=== PATIENT | male | born 1980 | race Caucasian/White ===

== ENCOUNTER 2017-01-25 17:43 | Emergency (ER) | payer SELFPAY ==
[2017-01-25 18:08] VITALS: BP 133/83
--- NOTE | 2017-01-25 18:16 | UC ---
Skin Complaint HPI - HPI Summary HPI Summary: 36 y/o male presents to the urgent care c/o red rash below his belly bottom since 01/21/2017. Pt reports he moved 100 kay of hay on that date and at night time he was scratching and he noticed his abdomen with redness, which has now increase in size. Pain is 7/10 when he touches, feeling a "prickly" sensation w/ o any radiation. He felt a little nausea this morning. . Pt denies fever, SOB, chest pain, V/D. - History of Current Complaint Chief Complaint: UCSkin Time Seen by Provider: 01/25/17 18:14 Stated Complaint: ABD PAIN/SKIN COMPLAINT Hx Obtained From: Patient Onset/Duration: Gradual Onset, Lasting Days, Still Present Skin Exposure Onset/Duration: Days Ago Timing: Constant Onset Severity: Mild Current Severity: Moderate Pain Intensity: 7 Pain Scale Used: 0-10 Numeric Location: Discrete - mid abdomen Character: Pain, Redness Aggravating: Touch Alleviating: Nothing Associated Signs & Symptoms: Positive: Tenderness. Negative: Nausea, Vomiting, Numbness, Shivering, Difficulty Breathing, Fever, Chills, Throat Tightening, Red Streaks Related History: Possible Reaction to: Insect - Allergy/Home Medications Allergies/Adverse Reactions: Allergies Allergy/AdvReac Type Severity Reaction Status Date / Time [facility] Unknown Verified 01/25/17 18:08 Reaction Details Penicillins Allergy Unknown Verified 01/25/17 18:08 Reaction Details Review of Systems Constitutional: Negative Skin: Rash - mid abdomen with pain and redness Eyes: Negative ENT: Negative Respiratory: Negative Cardiovascular: Negative Gastrointestinal: Negative, Nausea - this morning which resolved Genitourinary: Negative Motor: Negative Neurovascular: Negative Musculoskeletal: Negative Neurological: Negative Psychological: Negative All Other Systems Reviewed And Are Negative: Yes PMH/Surg Hx/FS Hx/Imm Hx Previously Healthy: Yes - Surgical History Surgical History: None - Family History Known Family History: Positive: Diabetes Family History: lung cancer, emphysema - Social History Occupation: Employed Full-time Lives: With Family Alcohol Use: None Substance Use Type: Marijuana Substance Use Comment - Amount & Last Used: twice daily Smoking Status (MU): Heavy Every Day Tobacco Smoker Type: Cigarettes Amount Used/How Often: 3/4 ppd Physical Exam Triage Information Reviewed: Yes Appearance: Well-Appearing, No Pain Distress, Well-Nourished, Obese Vital Signs: Initial Vital Signs Temp 98.6 F 01/25/17 18:02 Pulse 93 01/25/17 18:02 Resp 16 01/25/17 18:02 BP 133/83 01/25/17 18:02 Pulse Ox 97 01/25/17 18:02 Vital Signs Reviewed: Yes Eye Exam: Normal Eyes: Positive: Conjunctiva Clear - PERRLA, EOMI, ENT Exam: Normal ENT: Positive: Normal ENT inspection, Hearing grossly normal, Pharynx normal, TMs normal Dental Exam: Normal Neck exam: Normal Neck: Positive: Supple, Nontender, No Lymphadenopathy Respiratory Exam: Normal Respiratory: Positive: Chest non-tender, Lungs clear, Normal breath sounds Cardiovascular Exam: Normal Cardiovascular: Positive: RRR, No Murmur, Pulses Normal Abdominal Exam: Normal Abdomen Description: Positive: Nontender, No Organomegaly, Soft. Negative: CVA Tenderness (R), CVA Tenderness (L) Bowel Sounds: Positive: Present Musculoskeletal Exam: Normal Musculoskeletal: Positive: Strength Intact, ROM Intact, No Edema Neurological Exam: Normal Neurological: Positive: Muscle Tone Normal Psychological Exam: Normal Skin: Positive: rashes - mid abdomen below the umbilicus with erythematous patch with indistinct border, war to touch, tender to palpation about 4cm X2cm in size Course/Dx - Course Course Of Treatment: 36 y/o male presents to the urgent care c/o red rash below his belly bottom since 01/21/2017. Pt reports he moved 100 kay of hay on that date and at night time he was scratching and he noticed his abdomen with redness, which has now increase in size. Pain is 7/10 when he touches, feeling a "prickly" sensation w/o any radiation. He felt a little nausea this morning. . Pt denies fever, SOB, chest pain, V/D.Hx obtained. Pt with Cellulitis most likely s/p insect bite. Pt Rx Bactrim PO, bacitracin topical cream and Ibuprofen PO to alleviate pain. Pt dvised to return to the clinic or go to the ER if the redness doubles in size after more of 48hrs despite taking ABX. Pt understood and agreed. - Differential Diagnoses - Skin Complaint Differential Diagnoses: Abscess, Cellulitis, Eczema, Local Allergic Reaction, Tick Born Illness, Urticaria, Varicella Zoster - Diagnoses Provider Diagnoses: 1- celullitis Discharge - Discharge Plan Condition: Stable Disposition: HOME Prescriptions: Bacitracin OINTMENT* 1 applic TOPICAL BID #1 tube Ibuprofen TAB* [Motrin TAB* 800 MG] 800 mg PO Q6H #20 tab Sulfamethox/Trimethoprim DS* [Bactrim DS 800/160 TAB*] 1 tab PO BID #20 tab Patient Education Materials: Cellulitis (ED) Referrals: No Primary Care Phys,NOPCP [Primary Care Provider] - [facility] [Outside] Additional Instructions: 1-Please take full course of Antibiotic to avoid resistance 2- If redness and swelling doubles in size beyond what was demarcated after 48 hrs of taking antibiotic and fever develops please go to the ER immediately. 3-Please F/u with your PCP in 2 days for further management.
== END 2017-01-25 18:44 | disposition home or self-care (01) ==
LOC: UCCORT 17:43
DX: L03.90 Cellulitis, unspecified (principal); Z88.0 Allergy status to penicillin; F12.90 Cannabis use, unspecified, uncomplicated; F17.210 Nicotine dependence, cigarettes, uncomplicated; E66.9 Obesity, unspecified
CPT/HCPCS: 99202; G0463

== ENCOUNTER 2017-02-02 07:39 | Emergency (ER) | payer SELFPAY ==
[2017-02-02 07:59] VITALS: BP 131/82
--- NOTE | 2017-02-02 08:18 | ED ---
Skin Complaint - HPI Summary HPI Summary: 36 yr old male with cellulitis to the anterior abdominal wall. He states he had onset of this over a week ago. he came here and was put on bactrim. His cellulitis is much larger, and he feels light headed and dizzy. He has had chest pain, right calf pain, and some SOB the past week as well. He says he just doesnt' feel right. He states he knows he should have come back sooner to be seen, but didn't want to come back before giving the antibiotic time to work. The patient states originally the redness was small and only a little larger than an inch, but now it is across most of his anterior abdomen. His last tetanus shot was within the past two years. - History of Current Complaint Chief Complaint: UCSkin Time Seen by Provider: 02/02/17 08:00 Stated Complaint: RECHECK STOMACH SKIN COMPLAINT - Allergy/Home Medications Allergies/Adverse Reactions: Allergies Allergy/AdvReac Type Severity Reaction Status Date / Time Cefaclor [From [facility]] Allergy Unknown Verified 02/02/17 07:48 Reaction Details Penicillins Allergy Unknown Verified 02/02/17 07:48 Reaction Details PMH/Surg Hx/FS Hx/Imm Hx Previously Healthy: Yes - Surgical History Hx Anesthesia Reactions: No - Immunization History Date of Tetanus Vaccine: within two years Infectious Disease History: No Infectious Disease History: Denies: Traveled Outside the [place] in Last 30 Days - Family History Known Family History: Positive: Diabetes Family History: lung cancer, emphysema - Social History Alcohol Use: None Substance Use Type: Reports: Marijuana Substance Use Comment - Amount & Last Used: twice daily Hx Tobacco Use: Yes Smoking Status (MU): Heavy Every Day Tobacco Smoker Type: Cigarettes Amount Used/How Often: 3/4 ppd Review of Systems Positive: Chills Positive: Chest Pain Positive: Shortness Of Breath Positive: Abdominal Pain Positive: Other - right calf pain Positive: Other - cellulitis All Other Systems Reviewed And Are Negative: Yes Physical Exam Triage Information Reviewed: Yes Vital Signs On Initial Exam: Initial Vitals Temp Pulse Resp BP Pulse Ox 98 F 83 18 131/82 98 02/02/17 07:50 02/02/17 07:50 02/02/17 07:50 02/02/17 07:50 02/02/17 07:50 Vital Signs Reviewed: Yes Appearance: Positive: Well-Appearing, No Pain Distress Skin: Positive: Warm Head/Face: Positive: Normal Head/Face Inspection Eyes: Positive: EOMI ENT: Positive: Normal ENT inspection Neck: Positive: Supple, Nontender Respiratory/Lung Sounds: Positive: Clear to Auscultation, Breath Sounds Present Cardiovascular: Positive: RRR. Negative: Murmur Abdomen Description: Positive: Nontender Musculoskeletal: Positive: Strength/ROM Intact. Negative: Edema Left, Edema Right Neurological: Positive: Sensory/Motor Intact, Alert, Oriented to Person Place, Time, CN Intact II-III, Speech Normal. Negative: Disoriented Psychiatric: Positive: Normal Diagnostics - Vital Signs Vital Signs Temp Pulse Resp BP Pulse Ox 02/02/17 07:50 98 F 83 18 131/82 98 - Laboratory Lab Statement: Any lab studies that have been ordered have been reviewed, and results considered in the medical decision making process. Course/Dx - Course Course Of Treatment: 36 yr old with cellulitis to abdominal wall, and also complains of CP, SOB, and right calf pain the past week. Has felt like he will pass out. To the ER at [facility] the provider contacted there and aware patient coming by private car. He signed out AMA refusing ambulance transfer for his symptoms. - Diagnoses Provider Diagnoses: Dizziness, Cellulitis, Shortness of breath Discharge - Discharge Plan Condition: Good Disposition: AGAINST MEDICAL ADVICE
== END 2017-02-02 08:22 | disposition left against medical advice (07) ==
LOC: UCCORT 07:39
DX: L03.311 Cellulitis of abdominal wall (principal); R42 Dizziness and giddiness; R06.02 Shortness of breath; Z88.0 Allergy status to penicillin; Z88.1 Allergy status to other antibiotic agents
CPT/HCPCS: 99212; G0463

== ENCOUNTER 2018-05-13 12:20 | Emergency (ER) | payer SELFPAY ==
[2018-05-13 12:57] VITALS: BP 156/92
--- NOTE | 2018-05-13 14:17 | UC ---
Skin Complaint HPI - HPI Summary HPI Summary: Pt c/o gradual onset of painful rash on right side of trunk. Pt is concerned about cardiac health as his father of [place] in January 2018. - History of Current Complaint Chief Complaint: UCRespiratory Time Seen by Provider: 05/13/18 13:30 Stated Complaint: SKIN CONCERN,RIB PAIN,CHEST CONGESTION Hx Obtained From: Patient Onset/Duration: Sudden Onset, Lasting Days Skin Exposure Onset/Duration: Days Ago Timing: Constant Onset Severity: Mild Current Severity: Moderate Pain Intensity: 2 Pain Scale Used: 0-10 Numeric Location: Discrete Character: Pruritus, Pain, Redness, Raised, Painful Aggravating Factor(s): Touch Alleviating Factor(s): Nothing Associated Signs & Symptoms: Positive: Rash, Tenderness - Allergy/Home Medications Allergies/Adverse Reactions: Allergies Allergy/AdvReac Type Severity Reaction Status Date / Time cefaclor Allergy Unknown Verified 05/13/18 12:42 Reaction Details Penicillins Allergy Unknown Verified 05/13/18 12:42 Reaction Details PMH/Surg Hx/FS Hx/Imm Hx Previously Healthy: Yes - Surgical History Surgical History: None - Family History Known Family History: Positive: Cardiac Disease, Diabetes Family History: lung cancer, emphysema - Social History Occupation: Employed Full-time Lives: With Family Alcohol Use: None Substance Use Type: Marijuana Substance Use Comment - Amount & Last Used: daily; 05/13/18 Smoking Status (MU): Heavy Every Day Tobacco Smoker Type: Cigarettes Amount Used/How Often: 3/4 ppd Length of Time of Smoking/Using Tobacco: 18 years Have You Smoked in the Last Year: Yes Household Exposure Type: Cigarettes Review of Systems All Other Systems Reviewed And Are Negative: Yes Constitutional: Positive: Negative Skin: Positive: Negative, Rash Eyes: Positive: Negative ENT: Positive: Negative Respiratory: Positive: Negative Cardiovascular: Positive: Chest Pain Gastrointestinal: Positive: Negative Genitourinary: Positive: Negative Motor: Positive: Negative Neurovascular: Positive: Negative Musculoskeletal: Positive: Myalgia Neurological: Positive: Negative Psychological: Positive: Negative Is Patient Immunocompromised?: No Physical Exam Triage Information Reviewed: Yes Appearance: Well-Appearing Vital Signs: Initial Vital Signs Temp 98.9 F 05/13/18 12:43 Pulse 89 05/13/18 12:43 Resp 16 05/13/18 12:43 BP 156/92 05/13/18 12:43 Pulse Ox 97 05/13/18 12:43 Vital Signs Reviewed: Yes Eye Exam: Normal ENT Exam: Normal Dental Exam: Normal Neck exam: Normal Respiratory Exam: Normal Cardiovascular Exam: Normal Musculoskeletal Exam: Normal Neurological Exam: Normal Psychological Exam: Normal Skin Exam: Other - red, raised, clear fluid filled vessicle right mid/lateral back, that is in a line that goes to anterior chest wall Course/Dx - Differential Diagnoses - Skin Complaint Differential Diagnoses: Cellulitis, Varicella Zoster - Diagnoses Provider Diagnosis: Shingles Discharge - Sign-Out/Discharge Documenting (check all that apply): Patient Departure All imaging exams completed and their final reports reviewed: No Studies - Discharge Plan Condition: Stable Disposition: HOME Prescriptions: Lidocaine 4% TOPICAL* 1 applic TOPICAL Q8H PRN 7 Days #1 tube PRN Reason: Pain ValACYclovir (*) [Valtrex 1 GM(*)] 1 gm PO Q8H #30 tab Patient Education Materials: Shingles (ED), Thoracic Pain (ED) Referrals: [facility] [Outside] - As Soon As Possible No Primary Care Phys,NOPCP [Primary Care Provider] - Additional Instructions: PLEASE ESTABLISH CARE WITH A PCP SOON POSSIBLE. - Billing Disposition and Condition Condition: STABLE Disposition: Home - Attestation Statements Provider Attestation: I was available for consult. This patient was seen by the ANDRESSA. The patient was not presented to, seen by, or examined by me. EK
== END 2018-05-13 13:59 | disposition home or self-care (01) ==
LOC: UCCORT 12:20
DX: B02.9 Zoster without complications (principal); Z88.1 Allergy status to other antibiotic agents; F17.210 Nicotine dependence, cigarettes, uncomplicated; Z88.0 Allergy status to penicillin
CPT/HCPCS: 93005; 99212; G0463